=== PATIENT | female | born 1980 | race Caucasian/White ===

== ENCOUNTER 2019-01-28 11:49 | Outpatient (CLI) | payer OTHER, SELFPAY ==
[2019-01-28 13:31] LABS: Potassium 3.8 mmol/L (3.5-5.1)
== END 2019-01-28 12:09 ==
PROVIDERS: PCP Student in an Organized Health Care Education/Training Program; Visit Provider Student in an Organized Health Care Education/Training Program
DX: E87.6 Hypokalemia (principal)
CPT/HCPCS: 36415; 84132